=== PATIENT | female | born 1970 | race African-American/Black ===

== ENCOUNTER 2019-08-31 15:49 | Inpatient (IN) | payer MEDICAID ==
[~2019-08-31] VITALS: Ht 170.2 cm; Wt 65.8 kg
[2019-08-31] MEDS ORDERED: SODIUM CHLORIDE 0.9% 1,000 ML IV ONE (16:07)
[2019-08-31] MEDS ORDERED: KETOROLAC 30MG/ML VIAL IV STA (16:07)
[2019-08-31 16:36] LABS: HEMATOCRIT. 32.1 % (36.0-48.0); HEMOGLOBIN. 10.7 g/dL (12.0-16.0); MEAN CORPUSCULAR HEMOGLOBIN 32.4 pg (28.0-32.0); MEAN CORPUSCULAR VOLUME 97.4 fL (81.0-99.0); MEAN PLATELET VOLUME 7.6 fl (7.4-10.4); PLATELET 431 x1000/uL (130-400); RED BLOOD CELL COUNT 3.29 mill/uL (4.2-5.4); RED CELL DISTRIBUTION WIDTH 17.7 % (11.6-14.6)
[2019-08-31 16:44] LABS: CHLORIDE 98 mEq/L (98-107)
[2019-08-31 16:46] LABS: INR 1.5; PROTHROMBIN TIME 16.1 sec (9.6-11.0)
[2019-08-31 18:07] LABS: CLARITY URINE CLEAR (CLEAR); COLOR URINE DARK YELLOW (YELLOW); KETONES URINE TRACE (NEGATIVE); LEUKOCYTE ESTERASE URINE TRACE (NEGATIVE); NITRITE URINE NEGATIVE (NEGATIVE); OCCULT BLOOD URINE NEGATIVE (NEGATIVE); PROTEIN URINE 3+ (NEGATIVE); SPECIFIC GRAVITY URINE 1.022 (1.005-1.030)
[2019-08-31] MEDS ORDERED: LABETALOL 5MG/ML SYR 20 MG/4 ML SYRINGE IV ONE (18:30)
[2019-08-31] MEDS ORDERED: ONDANSETRON HCL 4MG/2ML INJ IV STA (20:05)
[2019-08-31] MEDS ORDERED: MORPHINE SULFATE 4 MG/ML CPJ (NOT FOR IM USE) IV STA (20:05)
[2019-08-31] MEDS ORDERED: HYDRALAZINE 20MG/ML VIAL IV ONE (20:15)
[2019-08-31] MEDS ORDERED: AMLODIPINE 10MG TABLET PO ONE (20:15)
[2019-08-31 20:23] LABS: PLATELET ESTIMATE INCREASED
[2019-08-31 22:00] VITALS: BP 143/94
[2019-08-31] MEDS ORDERED: MAGNESIUM/ALUMINUM HYDROXIDE/SIMETHICONE 30ML UDC PO PRN (22:00)
[2019-08-31] MEDS ORDERED: ONDANSETRON HCL 4MG/2ML INJ IV PRN (22:00)
[2019-08-31] MEDS ORDERED: GUAIFENESIN 200MG/10ML SUGAR FREE UDC PO PRN (22:00)
[2019-08-31] MEDS ORDERED: DOCUSATE SODIUM 100MG CAPSULE PO PRN (22:00)
[2019-08-31] MEDS ORDERED: IPRATROPIUM/ALBUTEROL 0.5-3(2.5)MG/3ML NEB ORI PRN (22:00)
[2019-08-31] MEDS ORDERED: ALBUMIN HUMAN 25GM/100ML (25%) IV SCH (23:00)
[2019-09-01] VITALS (8 sets, daily range): BP systolic 129–165; BP diastolic 89–110
[2019-09-01] MEDS: FUROSEMIDE 40MG/4ML VIAL IV SCH ×2 (00:32→09:00)
[2019-09-01] MEDS: SODIUM CHLORIDE 0.9% INJ 3ML FLUSH IVF SCH ×4 (00:32→22:07)
[2019-09-01] MEDS: CEFTRIAXONE 1 G PREMIX 50 ML IV SCH ×3 (00:33→22:07)
[2019-09-01] MEDS: HYDROCODONE/ACETAMINOPHEN 5/325MG TABLET PO PRN (00:34)
[2019-09-01 00:36] LABS: CREATINE KINASE MB FRACTION 1.9 ng/mL (0.5-3.6)
[2019-09-01 00:51] LABS: HEPATITIS B SURFACE ANTIGEN NEGATIVE
[2019-09-01 01:21] LABS: HEPATITIS A AB IGM NEGATIVE (NEGATIVE)
[2019-09-01 06:11] LABS: BASOPHILS % 0.7 % (0.0-2.0); HEMATOCRIT. 30.2 % (36.0-48.0); LYMPHOCYTES % 21.1 % (20.0-50.0); MEAN CORPUSCULAR HEMOGLOBIN 32.1 pg (28.0-32.0); MEAN CORPUSCULAR VOLUME 96.7 fL (81.0-99.0); MEAN PLATELET VOLUME 7.9 fl (7.4-10.4); MONOCYTES % 14.2 % (2.0-8.0); PLATELET 430 x1000/uL (130-400); RED BLOOD CELL COUNT 3.12 mill/uL (4.2-5.4)
[2019-09-01 06:20] LABS: CHLORIDE 96 mEq/L (98-107)
[2019-09-01 06:31] LABS: LDL CHOLESTEROL 83 mg/dL (5-100)
[2019-09-01 06:32] LABS: CREATINE KINASE 84 IU/L (26-192)
[2019-09-01 06:33] LABS: CREATINE KINASE MB FRACTION 1.6 ng/mL (0.5-3.6); HDL CHOLESTEROL 34 mg/dL (40-59)
[2019-09-01 09:48] LABS: *AMPHETAMINES SCREEN URINE PRESUMTIVE POSITIVE (NEGATIVE); *BARBITURATES SCREEN URINE NEGATIVE (NEGATIVE); *BENZODIAZEPINES SCREEN URINE NEGATIVE (NEGATIVE); *COCAINE SCREEN URINE NEGATIVE (NEGATIVE); CANNABINOID URINE SCREEN PRESUMTIVE POSITIVE (NEGATIVE); METHADONE URINE SCREEN NEGATIVE (NEGATIVE); OPIATES URINE SCREEN NEGATIVE (NEGATIVE)
[2019-09-01 09:49] LABS: PHENCYCLIDINE URINE SCREEN NEGATIVE (NEGATIVE)
[2019-09-01] MEDS: PANTOPRAZOLE SODIUM 40 MG/VIAL IV SCH (10:57)
[2019-09-01 12:39] LABS: BG BASE EXCESS -1.5 mmol/L (-2.0-2.0); BG CARBOXYHEMOGLOBIN 0.7 % (0.5-1.5); BG DEOXYHEMOGLOBIN 19.6 % (0.0-5.0); BG FRACTION INSPIRED OXYGEN 36; BG METHEMOGLOBIN 0.2 % (0.0-1.5); BG OXYGEN SATURATION 80.2 % (92.0-98.5); BG OXYHEMOGLOBIN 79.5 % (94.0-97.0); BG PCO2 43.8 mmHg (35.0-45.0); BG PH 7.357 (7.350-7.450); BG SAMPLE SITE RIGHT RADIAL; BG TOTAL HEMOGLOBIN 11.3 g/dL (12.0-18.0); BG VENT MODE NASAL CANNULA
[2019-09-01] MEDS ORDERED: BISACODYL 10MG SUPP PR PRN (13:45)
[2019-09-01] MEDS ORDERED: BISACODYL 5MG TABLET PO PRN (13:45)
[2019-09-01] MEDS ORDERED: PHYTONADIONE 10 MG/10 ML ORALSYR PO SCH (15:00)
[2019-09-01] MEDS ORDERED: MAGNESIUM CITRATE 300ML SOLUTION PO SCH (15:00)
[2019-09-01] MEDS: CARVEDILOL 6.25 MG TABLET PO SCH ×2 (15:15→22:07)
[2019-09-01] MEDS: CLONIDINE 0.1MG TABLET PO PRN (17:00)
[2019-09-01] MEDS ORDERED: SODIUM CHLORIDE 0.9% 1,000 ML IV SCH (17:15)
[2019-09-02 02:30] VITALS: BP 149/93
[2019-09-02 06:01] VITALS: BP 140/69
[2019-09-02 06:35] LABS: BASOPHILS % 0.7 % (0.0-2.0); EOSINOPHILS % 1.9 % (0.0-5.0); HEMATOCRIT. 32.2 % (36.0-48.0); HEMOGLOBIN. 10.9 g/dL (12.0-16.0); LYMPHOCYTES % 13.4 % (20.0-50.0); MEAN CORPUSCULAR HEMOGLOBIN 33.5 pg (28.0-32.0); MEAN CORPUSCULAR VOLUME 98.4 fL (81.0-99.0); MONOCYTES % 7.9 % (2.0-8.0); NEUTROPHILS % 76.1 % (40.0-76.0); PLATELET 447 x1000/uL (130-400); RED BLOOD CELL COUNT 3.27 mill/uL (4.2-5.4); RED CELL DISTRIBUTION WIDTH 17.6 % (11.6-14.6)
[2019-09-02 06:48] LABS: CHLORIDE 95 mEq/L (98-107)
[2019-09-02 06:54] LABS: PHOSPHORUS 3.7 mg/dL (2.5-4.9)
[2019-09-02 08:00] VITALS: BP 136/86
[2019-09-02] MEDS: CARVEDILOL 6.25 MG TABLET PO SCH ×2 (09:04→20:38)
[2019-09-02] MEDS: SODIUM CHLORIDE 0.9% INJ 3ML FLUSH IVF SCH ×3 (09:05→21:01)
[2019-09-02] MEDS: PANTOPRAZOLE SODIUM 40 MG/VIAL IV SCH (09:05)
[2019-09-02] MEDS ORDERED: LOSARTAN POTASSIUM 25 MG TABLET PO SCH (09:45)
[2019-09-02 12:00] VITALS: BP 110/76
[2019-09-02] MEDS: FUROSEMIDE 40MG/4ML VIAL IVP SCH (14:09)
[2019-09-02 15:33] LABS: TOTAL IRON BINDING CAPACITY 325 ug/dL (250-450)
[2019-09-02 16:00] VITALS: BP 129/78
[2019-09-02] MEDS: HYDROCODONE/ACETAMINOPHEN 5/325MG TABLET PO PRN (18:16)
[2019-09-02 19:37] VITALS: BP 110/71
[2019-09-02] MEDS: HYDROCODONE/ACETAMINOPHEN 10/325MG TABLET PO PRN (20:38)
[2019-09-02] MEDS ORDERED: LACTULOSE 20G/30ML UDC PO SCH (21:30)
[2019-09-02] MEDS: CEFTRIAXONE 1 G PREMIX 50 ML IV SCH (22:31)
[2019-09-03 00:42] VITALS: BP 130/87
[2019-09-03 04:00] VITALS: BP 134/88
[2019-09-03] MEDS: SODIUM CHLORIDE 0.9% INJ 3ML FLUSH IVF SCH ×3 (05:14→21:12)
[2019-09-03 07:14] LABS: HEMATOCRIT. 32.2 % (36.0-48.0); HEMOGLOBIN. 10.4 g/dL (12.0-16.0); MEAN CORPUSCULAR HEMOGLOBIN 31.4 pg (28.0-32.0); MEAN CORPUSCULAR VOLUME 97.4 fL (81.0-99.0); MEAN PLATELET VOLUME 8.2 fl (7.4-10.4); PLATELET 460 x1000/uL (130-400); RED CELL DISTRIBUTION WIDTH 17.1 % (11.6-14.6)
[2019-09-03 07:17] LABS: CHLORIDE 96 mEq/L (98-107)
[2019-09-03 07:22] LABS: PHOSPHORUS 3.9 mg/dL (2.5-4.9)
[2019-09-03 08:00] VITALS: BP 144/95
[2019-09-03] MEDS ORDERED: BISACODYL 5MG TABLET PO SCH (08:15)
[2019-09-03] MEDS: DOCUSATE SODIUM 100MG CAPSULE PO SCH ×2 (09:03→17:19)
[2019-09-03] MEDS: FAMOTIDINE 20MG/2ML VIAL IV SCH (09:03)
[2019-09-03] MEDS: CARVEDILOL 6.25 MG TABLET PO SCH ×2 (09:03→20:48)
[2019-09-03] MEDS: FUROSEMIDE 40MG/4ML VIAL IVP SCH ×2 (09:03→19:01)
[2019-09-03 09:06] LABS: IMMUNOGLOBULIN A 635 mg/dL (87-352); IMMUNOGLOBULIN G 1220 mg/dL (586-1602); IMMUNOGLOBULIN M 43 mg/dL (26-217)
[2019-09-03 09:06] LABS: HIV SCREEN 4G Non Reactive (Non Reactive)
[2019-09-03] MEDS ORDERED: AMLODIPINE 5MG TABLET PO SCH (09:45)
[2019-09-03] MEDS: AZITHROMYCIN 500 MG TABLET PO SCH (10:24)
[2019-09-03 12:00] VITALS: BP 142/97
[2019-09-03 13:06] LABS: A/G RATIO 0.9 (0.7-1.7); ALPHA-1-GLOBULIN 0.5 g/dL (0.0-0.4); ALPHA-2-GLOBULIN 0.7 g/dL (0.4-1.0); ANTI-DNA DOUBLE STRANDED QUANT < 1 IU/mL (0-9); BETA GLOBULIN 1.3 g/dL (0.7-1.3); GAMMA GLOBULINS 1.1 g/dL (0.4-1.8); GLOBULIN TOTAL 3.5 g/dL (2.2-3.9); M-SPIKE Not Observed g/dL (Not Observed); TOTAL PROTEIN SERUM 6.5 g/dL (6.0-8.5)
[2019-09-03 13:06] LABS: ANTI-NUCLEAR ANTIBODIES DIRECT Positive (Negative)
[2019-09-03 14:51] LABS: PLATELET ESTIMATE INCREASED
[2019-09-03 16:00] VITALS: BP 118/80
[2019-09-03 20:00] VITALS: BP 124/73
[2019-09-03] MEDS: HYDROCODONE/ACETAMINOPHEN 10/325MG TABLET PO PRN (21:12)
[2019-09-03] MEDS: CEFTRIAXONE 1 G PREMIX 50 ML IV SCH (22:48)
[2019-09-04] VITALS: BP 151/101
[2019-09-04] MEDS: CLONIDINE 0.1MG TABLET PO PRN (00:11)
[2019-09-04 04:00] VITALS: BP 136/84
[2019-09-04] MEDS: SODIUM CHLORIDE 0.9% INJ 3ML FLUSH IVF SCH ×3 (05:01→22:31)
[2019-09-04] MEDS: FUROSEMIDE 40MG/4ML VIAL IVP SCH ×2 (06:15→17:37)
[2019-09-04 06:57] LABS: BASOPHILS % 1.3 % (0.0-2.0); EOSINOPHILS % 2.5 % (0.0-5.0); HEMATOCRIT. 32.8 % (36.0-48.0); HEMOGLOBIN. 10.7 g/dL (12.0-16.0); LYMPHOCYTES % 23.9 % (20.0-50.0); MEAN CORPUSCULAR VOLUME 98.2 fL (81.0-99.0); MEAN PLATELET VOLUME 8.1 fl (7.4-10.4); NEUTROPHILS % 60.3 % (40.0-76.0); PLATELET 500 x1000/uL (130-400); RED BLOOD CELL COUNT 3.34 mill/uL (4.2-5.4); RED CELL DISTRIBUTION WIDTH 17.2 % (11.6-14.6)
[2019-09-04 07:06] LABS: CHLORIDE 93 mEq/L (98-107)
[2019-09-04 08:00] VITALS: BP 138/90
[2019-09-04] MEDS: AZITHROMYCIN 500 MG TABLET PO SCH (08:55)
[2019-09-04] MEDS: DOCUSATE SODIUM 100MG CAPSULE PO SCH ×2 (08:55→17:37)
[2019-09-04] MEDS: CARVEDILOL 6.25 MG TABLET PO SCH ×2 (08:56→22:31)
[2019-09-04] MEDS: FAMOTIDINE 20MG/2ML VIAL IV SCH (08:56)
[2019-09-04 09:06] LABS: GLOMERULAR BASEMENT MEMB AB 3 units (0-20)
[2019-09-04 11:45] VITALS: BP 138/89
[2019-09-04 13:06] LABS: ATYPICAL P-ANCA <1:20 titer (Neg:<1:20); CYTOPLASMIC C-ANCA <1:20 titer (Neg:<1:20); PERINUCLEAR P-ANCA <1:20 titer (Neg:<1:20)
[2019-09-04 14:08] LABS: ANTI-CARDIOLIPIN AB IGA < 9 APL U/mL (0-11); ANTI-CARDIOLIPIN AB IGG < 9 GPL U/mL (0-14); ANTI-CARDIOLIPIN AB IGM < 9 MPL U/mL (0-12); ANTI-MYELOPEROXIDASE AB < 9.0 U/mL (0.0-9.0); ANTI-PROTEINASE 3 ABS < 3.5 U/mL (0.0-3.5)
[2019-09-04 16:00] VITALS: BP 131/59
[2019-09-04] MEDS: AMLODIPINE 10MG TABLET PO SCH (17:37)
[2019-09-04] MEDS: LACTULOSE 20G/30ML UDC PO SCH ×3 (17:40→22:31)
[2019-09-04] MEDS: CEFTRIAXONE 1 G PREMIX 50 ML IV SCH (22:31)
[2019-09-05] MEDS: LACTULOSE 20G/30ML UDC PO SCH ×2 (06:00→06:46)
[2019-09-05 06:09] LABS: QFT MITOGEN VALUE 2.03 IU/mL (.); QFT TB GOLD PLUS Negative (Negative); QFT TB1 AG VALUE 0.08 IU/mL (.)
[2019-09-05 06:40] LABS: BASOPHILS % 0.9 % (0.0-2.0); EOSINOPHILS % 1.5 % (0.0-5.0); HEMATOCRIT. 29.5 % (36.0-48.0); HEMOGLOBIN. 9.7 g/dL (12.0-16.0); LYMPHOCYTES % 18.6 % (20.0-50.0); MEAN CORPUSCULAR HEMOGLOBIN 31.6 pg (28.0-32.0); MEAN CORPUSCULAR VOLUME 96.2 fL (81.0-99.0); MEAN PLATELET VOLUME 7.9 fl (7.4-10.4); MONOCYTES % 14.4 % (2.0-8.0); NEUTROPHILS % 64.6 % (40.0-76.0); PLATELET 504 x1000/uL (130-400); RED BLOOD CELL COUNT 3.06 mill/uL (4.2-5.4); RED CELL DISTRIBUTION WIDTH 16.3 % (11.6-14.6)
[2019-09-05] MEDS: FUROSEMIDE 40MG/4ML VIAL IVP SCH ×2 (06:46→17:04)
[2019-09-05] MEDS: SODIUM CHLORIDE 0.9% INJ 3ML FLUSH IVF SCH ×3 (06:46→22:02)
[2019-09-05 06:57] LABS: PHOSPHORUS 2.8 mg/dL (2.5-4.9)
[2019-09-05 08:00] VITALS: BP 148/92
[2019-09-05] MEDS: FAMOTIDINE 20MG/2ML VIAL IV SCH (09:12)
[2019-09-05] MEDS: AZITHROMYCIN 500 MG TABLET PO SCH (09:12)
[2019-09-05] MEDS: DOCUSATE SODIUM 100MG CAPSULE PO SCH (09:12)
[2019-09-05] MEDS: CARVEDILOL 6.25 MG TABLET PO SCH ×2 (09:13→21:54)
[2019-09-05] MEDS: AMLODIPINE 10MG TABLET PO SCH (09:13)
[2019-09-05] MEDS ORDERED: POTASSIUM CHLORIDE 20MEQ TABLET SR PO NR ×3 (09:30→16:46)
[2019-09-05] MEDS ORDERED: LACTULOSE 20G/30ML UDC PO SCH (11:45)
[2019-09-05] MEDS: SPIRONOLACTONE 25MG TABLET PO SCH (11:55)
[2019-09-05 11:56] VITALS: BP 146/96
[2019-09-05 12:00] VITALS: BP 140/90
[2019-09-05 16:00] VITALS: BP 142/80
[2019-09-05] MEDS ORDERED: SIMETHICONE 80MG TABLET CHEW PO PRN (17:15)
[2019-09-05] MEDS ORDERED: SIMETHICONE 40 MG/0.6 ML 30ML PO SCH ×2 (18:20)
[2019-09-05 20:00] VITALS: BP 145/82
[2019-09-05] MEDS: DIPHENHYDRAMINE 50MG CAPSULE PO PRN (23:14)
[2019-09-06 00:30] VITALS: BP 148/90
[2019-09-06 04:00] VITALS: BP 149/78
[2019-09-06] MEDS: SODIUM CHLORIDE 0.9% INJ 3ML FLUSH IVF SCH ×3 (06:58→22:13)
[2019-09-06] MEDS: FUROSEMIDE 40MG/4ML VIAL IVP SCH ×2 (07:15→16:01)
[2019-09-06 07:19] LABS: EOSINOPHILS % 0.9 % (0.0-5.0); HEMATOCRIT. 30.5 % (36.0-48.0); HEMOGLOBIN. 10.2 g/dL (12.0-16.0); LYMPHOCYTES % 13.3 % (20.0-50.0); MEAN CORPUSCULAR HEMOGLOBIN 31.8 pg (28.0-32.0); MEAN CORPUSCULAR VOLUME 95.6 fL (81.0-99.0); MEAN PLATELET VOLUME 7.9 fl (7.4-10.4); NEUTROPHILS % 71.8 % (40.0-76.0); PLATELET 501 x1000/uL (130-400); RED BLOOD CELL COUNT 3.19 mill/uL (4.2-5.4); RED CELL DISTRIBUTION WIDTH 16.3 % (11.6-14.6)
[2019-09-06 07:42] LABS: CHLORIDE 99 mEq/L (98-107)
[2019-09-06 08:00] VITALS: BP 149/89
[2019-09-06] MEDS: AZITHROMYCIN 500 MG TABLET PO SCH (09:11)
[2019-09-06] MEDS: AMLODIPINE 10MG TABLET PO SCH (09:11)
[2019-09-06] MEDS: FAMOTIDINE 20MG/2ML VIAL IV SCH (09:11)
[2019-09-06] MEDS: SPIRONOLACTONE 25MG TABLET PO SCH (09:12)
[2019-09-06] MEDS: CARVEDILOL 6.25 MG TABLET PO SCH ×2 (09:12→22:13)
[2019-09-06] MEDS: ACETAMINOPHEN 325MG TABLET PO PRN (11:02)
[2019-09-06 11:32] LABS: CREATINE KINASE 52 IU/L (26-192)
[2019-09-06 12:10] VITALS: BP 136/79
[2019-09-06] MEDS ORDERED: POTASSIUM PHOS,M-BASIC-D-BASIC 20 MMOL in DEXT 5% WATER 243.3333 ML IV SCH (14:00)
[2019-09-06 16:00] VITALS: BP 124/74
[2019-09-06] MEDS: HYDROCODONE/ACETAMINOPHEN 10/325MG TABLET PO PRN (16:13)
[2019-09-06 20:00] VITALS: BP 147/92
[2019-09-06] MEDS: CEFTRIAXONE 1 G PREMIX 50 ML IV SCH (22:13)
[2019-09-07] VITALS: BP 145/90
[2019-09-07 04:00] VITALS: BP 155/90
[2019-09-07 06:30] LABS: HEMOGLOBIN. 10.7 g/dL (12.0-16.0); MEAN CORPUSCULAR HEMOGLOBIN 31.2 pg (28.0-32.0); MEAN CORPUSCULAR VOLUME 96.1 fL (81.0-99.0); PLATELET 488 x1000/uL (130-400); RED BLOOD CELL COUNT 3.44 mill/uL (4.2-5.4); RED CELL DISTRIBUTION WIDTH 16.7 % (11.6-14.6)
[2019-09-07 06:42] LABS: PHOSPHORUS 3.2 mg/dL (2.5-4.9)
[2019-09-07] MEDS: SODIUM CHLORIDE 0.9% INJ 3ML FLUSH IVF SCH ×3 (06:42→20:33)
[2019-09-07] MEDS: FUROSEMIDE 40MG/4ML VIAL IVP SCH (06:42)
[2019-09-07 06:45] LABS: D-DIMER 0.99 mg/L FEU (<0.50); INR 1.4; PARTIAL THROMBOPLASTIN TIME 28.5 sec (23.4-31.0); PROTHROMBIN TIME 15.2 sec (9.6-11.0)
[2019-09-07 08:06] VITALS: BP 156/99
[2019-09-07 08:11] LABS: *CREATININE RANDOM URINE 12.3 mg/dL (Not Estab.); MICROALBUMIN RANDOM URINE 26.7 ug/mL (Not Estab.)
[2019-09-07] MEDS: AZITHROMYCIN 500 MG TABLET PO SCH (09:05)
[2019-09-07] MEDS: AMLODIPINE 10MG TABLET PO SCH (09:06)
[2019-09-07] MEDS: SPIRONOLACTONE 25MG TABLET PO SCH (09:06)
[2019-09-07] MEDS: CARVEDILOL 6.25 MG TABLET PO SCH (09:06)
[2019-09-07] MEDS: FAMOTIDINE 20MG/2ML VIAL IV SCH (09:15)
[2019-09-07 12:00] VITALS: BP 145/88
[2019-09-07] MEDS: ALBUTEROL 6.7GM HFA INHALER ORI SCH ×2 (12:00→18:08)
[2019-09-07 13:19] LABS: NUCLEATED RED BLOOD CELLS 1 /100 WBC; PLATELET ESTIMATE INCREASED
[2019-09-07] MEDS ORDERED: MAGNESIUM 2 G PREMIX 50 ML IV SCH (14:00)
[2019-09-07] MEDS: DIPHENHYDRAMINE 50MG CAPSULE PO PRN ×2 (14:06→20:33)
[2019-09-07 16:00] VITALS: BP 138/89
[2019-09-07] MEDS: LACTULOSE 20G/30ML UDC PO SCH (16:59)
[2019-09-07 20:00] VITALS: BP 135/87
[2019-09-07] MEDS: CARVEDILOL 12.5MG TABLET PO SCH (20:33)
[2019-09-07] MEDS: CEFTRIAXONE 1 G PREMIX 50 ML IV SCH (20:33)
[2019-09-08] VITALS: BP 128/85
[2019-09-08 04:00] VITALS: BP 125/77
[2019-09-08] MEDS: SODIUM CHLORIDE 0.9% INJ 3ML FLUSH IVF SCH ×2 (05:06→14:00)
[2019-09-08] MEDS: ALBUTEROL 6.7GM HFA INHALER ORI SCH ×2 (05:06)
[2019-09-08 06:26] LABS: HEMATOCRIT. 33.5 % (36.0-48.0); HEMOGLOBIN. 11.1 g/dL (12.0-16.0); MEAN CORPUSCULAR HEMOGLOBIN 31.6 pg (28.0-32.0); MEAN CORPUSCULAR VOLUME 95.5 fL (81.0-99.0); MEAN PLATELET VOLUME 7.9 fl (7.4-10.4); PLATELET 487 x1000/uL (130-400); RED BLOOD CELL COUNT 3.51 mill/uL (4.2-5.4); RED CELL DISTRIBUTION WIDTH 16.2 % (11.6-14.6)
[2019-09-08 06:28] LABS: CHLORIDE 98 mEq/L (98-107)
[2019-09-08 08:00] VITALS: BP 146/93
[2019-09-08] MEDS ORDERED: SODIUM BICARBONATE 4% (2.4MEQ) 5ML VIAL IV ONE (08:29)
[2019-09-08] MEDS ORDERED: FUROSEMIDE 40MG TABLET PO SCH (09:00)
[2019-09-08] MEDS: LACTULOSE 20G/30ML UDC PO SCH (09:56)
[2019-09-08] MEDS: FAMOTIDINE 20MG/2ML VIAL IV SCH (09:56)
[2019-09-08] MEDS: AMLODIPINE 10MG TABLET PO SCH (10:00)
[2019-09-08] MEDS: CARVEDILOL 12.5MG TABLET PO SCH (10:00)
[2019-09-08] MEDS: ACETAMINOPHEN 325MG TABLET PO PRN (10:06)
[2019-09-08] MEDS ORDERED: LACT10SO7 MT (10:53)
[2019-09-08] MEDS ORDERED: AMLO10TA80 PO (10:53)
[2019-09-08] MEDS ORDERED: COR12 PO (10:53)
[2019-09-08] MEDS ORDERED: FURO-151 MT (10:53)
[2019-09-08] MEDS ORDERED: SPIR25TA PO (10:53)
[2019-09-08] MEDS ORDERED: POTASSIUM CHLORIDE 20MEQ TABLET SR PO NR (11:00)
[2019-09-08] MEDS: SPIRONOLACTONE 25MG TABLET PO SCH (11:23)
[2019-09-08 12:00] VITALS: BP 119/71
[2019-09-08 13:21] LABS: PLATELET ESTIMATE INCREASED
[2019-09-08] MEDS ORDERED: POTASSIUM CHLORIDE 20MEQ TABLET SR PO SCH (15:00)
[2019-09-08 16:00] VITALS: BP 111/75
[2019-09-08 16:18] VITALS: BP 111/75
== END 2019-09-08 18:25 | disposition home or self-care (01) | DRG 280 ==
LOC: ER 15:49 → UNDOADMIN 20:08 → 6WST 20:08 → MICUSO 20:08 → EDBEDREQSVC 20:12 → EDBEDREQTM 20:12 → EDBEDREQ 20:12 → ENRESERV 21:34
PROVIDERS: ADMIT Family Medicine; ATTEND Family Medicine
PROC: 0W993ZZ Drainage of Right Pleural Cavity, Percutaneous Approach (ICD-10-PCS; principal; 2019-09-08)
DX: K70.31 Alcoholic cirrhosis of liver with ascites (principal); J96.00 Acute respiratory failure, unspecified whether with hypoxia or hypercapnia; I50.23 Acute on chronic systolic (congestive) heart failure; E43 Unspecified severe protein-calorie malnutrition; J18.9 Pneumonia, unspecified organism; J91.8 Pleural effusion in other conditions classified elsewhere; N17.9 Acute kidney failure, unspecified; D68.9 Coagulation defect, unspecified; E11.22 Type 2 diabetes mellitus with diabetic chronic kidney disease; I13.0 Hypertensive heart and chronic kidney disease with heart failure and stage 1 through stage 4 chronic kidney disease, or unspecified chronic kidney disease; N18.9 Chronic kidney disease, unspecified; D64.9 Anemia, unspecified; F10.20 Alcohol dependence, uncomplicated; K59.00 Constipation, unspecified; K57.90 Diverticulosis of intestine, part unspecified, without perforation or abscess without bleeding; E87.1 Hypo-osmolality and hyponatremia; D25.9 Leiomyoma of uterus, unspecified; I42.9 Cardiomyopathy, unspecified; F15.10 Other stimulant abuse, uncomplicated; E83.42 Hypomagnesemia; F12.90 Cannabis use, unspecified, uncomplicated; D72.810 Lymphocytopenia; E87.6 Hypokalemia; D47.3 Essential (hemorrhagic) thrombocythemia; F17.210 Nicotine dependence, cigarettes, uncomplicated; I27.29 Other secondary pulmonary hypertension; K72.90 Hepatic failure, unspecified without coma; Z98.51 Tubal ligation status; Z90.49 Acquired absence of other specified parts of digestive tract; Z90.721 Acquired absence of ovaries, unilateral; Z68.22 Body mass index [BMI] 22.0-22.9, adult; Z03.818 Encounter for observation for suspected exposure to other biological agents ruled out
CPT/HCPCS: 32555; 36415; 36600; 71045; 71250; 74176; 74181; 76700; 76770; 76801; 80048; 80053; 80061; 80076; 80305; 81003; 82043; 82105; 82140; 82248; 82375; 82390; 82550; 82553; 82570; 82728; 82784; 82805; 83036; 83520; 83540; 83550; 83735; 84100; 84132; 84145; 84155; 84165; 84300; 84443; 84484; 84702; 85025; 85379; 85384; 85651; 86038; 86140; 86147; 86160; 86225; 86256; 86334; 86480; 86705; 86709; 86803; 86850; 86900; 87340; 87389; 93306; 96374; 97110; 97162; 97530; 99291; C9113; J0360; J0696; J1885; J1940; J2270; J2405; J3430; J3475; J3490; J7030; J7060; P9047; Q0163; U0003-CS

== ENCOUNTER 2019-10-31 15:54 | Inpatient (IN) | payer MEDICAID ==
[~2019-10-31] VITALS: Ht 160 cm; Wt 56.3 kg
[~2019-10-31 15:54] MED LIST: AMLO10TA80 PO; COR12 PO; FURO-151 MT; LACT10SO7 MT; SPIR25TA PO
[2019-10-31] MEDS ORDERED: FUROSEMIDE 40MG/4ML VIAL IV ONE (16:45)
[2019-10-31] MEDS ORDERED: NITROGLYCERIN OINT 1GM/INCH UDPKT TD ONE (16:45)
[2019-10-31 17:53] LABS: BASOPHILS % 0.6 % (0.0-2.0); EOSINOPHILS % 1.7 % (0.0-5.0); HEMATOCRIT. 35.6 % (36.0-48.0); HEMOGLOBIN. 11.8 g/dL (12.0-16.0); LYMPHOCYTES % 16.7 % (20.0-50.0); MEAN CORPUSCULAR HEMOGLOBIN 29.1 pg (28.0-32.0); MEAN CORPUSCULAR VOLUME 87.8 fL (81.0-99.0); MEAN PLATELET VOLUME 8.3 fl (7.4-10.4); MONOCYTES % 8.3 % (2.0-8.0); NEUTROPHILS % 72.7 % (40.0-76.0); PLATELET 330 x1000/uL (130-400); RED BLOOD CELL COUNT 4.05 mill/uL (4.2-5.4); RED CELL DISTRIBUTION WIDTH 16.7 % (11.6-14.6)
[2019-10-31 17:59] LABS: CHLORIDE 109 mEq/L (98-107)
[2019-10-31 18:03] LABS: INR 1.1; PROTHROMBIN TIME 11.8 sec (9.6-11.0)
[2019-10-31] MEDS: HYDRALAZINE 20MG/ML VIAL IV NR ×2 (19:02→20:56)
[2019-10-31] MEDS ORDERED: ACETAMINOPHEN 325MG TABLET PO ONE (21:15)
[2019-10-31] MEDS ORDERED: HYDRALAZINE 20MG/ML VIAL IV ONE (21:15)
[2019-10-31] MEDS ORDERED: CLONIDINE 0.2MG TABLET PO ONE (21:15)
[2019-10-31] MEDS ORDERED: ACETAMINOPHEN 650MG/20.3ML UDC GT PRN ×2 (21:45)
[2019-10-31] MEDS ORDERED: ACETAMINOPHEN 325MG TABLET PO PRN ×2 (21:45)
[2019-10-31] MEDS ORDERED: ONDANSETRON HCL 4MG/2ML INJ IV PRN (21:45)
[2019-10-31] MEDS ORDERED: NITROGLYCERIN 0.2MG/HR PATCH TOP SCH (23:00)
[2019-11-01] VITALS (12 sets, daily range): BP systolic 115–146; BP diastolic 49–99
[2019-11-01] MEDS: AMLODIPINE 10MG TABLET PO SCH ×2 (01:13→08:50)
[2019-11-01] MEDS: HYDROCODONE/ACETAMINOPHEN 5/325MG TABLET PO PRN ×3 (02:22→18:58)
[2019-11-01 03:20] LABS: CLARITY URINE CLEAR (CLEAR); COLOR URINE YELLOW (YELLOW); KETONES URINE NEGATIVE (NEGATIVE); LEUKOCYTE ESTERASE URINE NEGATIVE (NEGATIVE); NITRITE URINE NEGATIVE (NEGATIVE); OCCULT BLOOD URINE NEGATIVE (NEGATIVE); PH URINE 7.5 (4.5-8.0); PROTEIN URINE NEGATIVE (NEGATIVE); SPECIFIC GRAVITY URINE 1.012 (1.005-1.030)
[2019-11-01 04:12] LABS: *BENZODIAZEPINES SCREEN URINE NEGATIVE (NEGATIVE); *COCAINE SCREEN URINE PRESUMTIVE POSITIVE (NEGATIVE); METHADONE URINE SCREEN NEGATIVE (NEGATIVE); OPIATES URINE SCREEN NEGATIVE (NEGATIVE)
[2019-11-01 04:13] LABS: *AMPHETAMINES SCREEN URINE NEGATIVE (NEGATIVE); *BARBITURATES SCREEN URINE NEGATIVE (NEGATIVE); CANNABINOID URINE SCREEN PRESUMTIVE POSITIVE (NEGATIVE); PHENCYCLIDINE URINE SCREEN NEGATIVE (NEGATIVE)
[2019-11-01 07:04] LABS: BASOPHILS % 0.5 % (0.0-2.0); EOSINOPHILS % 1.7 % (0.0-5.0); HEMATOCRIT. 31.8 % (36.0-48.0); HEMOGLOBIN. 10.7 g/dL (12.0-16.0); LYMPHOCYTES % 19.8 % (20.0-50.0); MEAN CORPUSCULAR HEMOGLOBIN 28.9 pg (28.0-32.0); MEAN CORPUSCULAR VOLUME 85.9 fL (81.0-99.0); MEAN PLATELET VOLUME 8.5 fl (7.4-10.4); PLATELET 317 x1000/uL (130-400); RED BLOOD CELL COUNT 3.71 mill/uL (4.2-5.4); RED CELL DISTRIBUTION WIDTH 16.5 % (11.6-14.6)
[2019-11-01 07:07] LABS: CHLORIDE 106 mEq/L (98-107)
[2019-11-01 07:22] LABS: LDL CHOLESTEROL 135 mg/dL (5-100)
[2019-11-01 07:25] LABS: HDL CHOLESTEROL 46 mg/dL (40-59)
[2019-11-01] MEDS: NITROGLYCERIN 0.1MG/HR PATCH TOP SCH (08:49)
[2019-11-01] MEDS: FUROSEMIDE 40MG/4ML VIAL IV SCH (08:49)
[2019-11-01] MEDS: LACTULOSE 20G/30ML UDC PO SCH (08:50)
[2019-11-01] MEDS: CARVEDILOL 12.5MG TABLET PO SCH ×2 (08:50→21:14)
[2019-11-01] MEDS: SPIRONOLACTONE 25MG TABLET PO SCH (08:51)
[2019-11-01] MEDS: ENOXAPARIN 30MG/0.3ML SYR SUBCUT SCH (08:51)
[2019-11-01 14:20] LABS: T4 FREE 1.26 ng/dL (0.76-1.46)
[2019-11-01 16:14] LABS: CREATINE KINASE 38 IU/L (26-192)
[2019-11-01 16:15] LABS: CREATINE KINASE MB FRACTION < 1.0 ng/mL (0.5-3.6)
[2019-11-02] VITALS (9 sets, daily range): BP systolic 110–153; BP diastolic 49–101
[2019-11-02 00:39] LABS: CREATINE KINASE 35 IU/L (26-192)
[2019-11-02 00:40] LABS: CREATINE KINASE MB FRACTION < 1.0 ng/mL (0.5-3.6)
[2019-11-02 06:59] LABS: CREATINE KINASE 32 IU/L (26-192)
[2019-11-02 07:00] LABS: CREATINE KINASE MB FRACTION < 1.0 ng/mL (0.5-3.6)
[2019-11-02] MEDS: FUROSEMIDE 40MG/4ML VIAL IV SCH (08:02)
[2019-11-02] MEDS: LACTULOSE 20G/30ML UDC PO SCH (08:02)
[2019-11-02] MEDS: ENOXAPARIN 30MG/0.3ML SYR SUBCUT SCH (08:02)
[2019-11-02] MEDS: SPIRONOLACTONE 25MG TABLET PO SCH (08:04)
[2019-11-02] MEDS: AMLODIPINE 10MG TABLET PO SCH (08:04)
[2019-11-02] MEDS: CARVEDILOL 12.5MG TABLET PO SCH (08:04)
[2019-11-02] MEDS: HYDROCODONE/ACETAMINOPHEN 5/325MG TABLET PO PRN (08:05)
[2019-11-02] MEDS: NITROGLYCERIN 0.1MG/HR PATCH TOP SCH (08:17)
[2019-11-02] MEDS ORDERED: LACT10SO7 MT (10:40)
[2019-11-02] MEDS ORDERED: AMLO10TA80 PO (10:40)
[2019-11-02] MEDS ORDERED: COR12 PO (10:40)
[2019-11-02] MEDS ORDERED: SPIR25TA PO (10:40)
[2019-11-02] MEDS ORDERED: FURO-151 MT (10:40)
[2019-11-02 11:28] LABS: BASOPHILS % 0.9 % (0.0-2.0); EOSINOPHILS % 4.2 % (0.0-5.0); HEMATOCRIT. 32.5 % (36.0-48.0); HEMOGLOBIN. 10.7 g/dL (12.0-16.0); LYMPHOCYTES % 24.7 % (20.0-50.0); MEAN CORPUSCULAR HEMOGLOBIN 28.5 pg (28.0-32.0); MEAN CORPUSCULAR VOLUME 86.5 fL (81.0-99.0); MEAN PLATELET VOLUME 8.7 fl (7.4-10.4); MONOCYTES % 9.9 % (2.0-8.0); NEUTROPHILS % 60.3 % (40.0-76.0); PLATELET 320 x1000/uL (130-400); RED BLOOD CELL COUNT 3.75 mill/uL (4.2-5.4); RED CELL DISTRIBUTION WIDTH 16.5 % (11.6-14.6)
[2019-11-02 11:31] LABS: CHLORIDE 104 mEq/L (98-107)
[2019-11-03] MEDS ORDERED: NITROGLYCERIN 0.2MG/HR PATCH TOP SCH (09:00)
== END 2019-11-02 16:00 | disposition home or self-care (01) | DRG 194 ==
LOC: ER 16:08 → 5EST 18:34 → EDBEDREQ 18:48 → EDBEDREQSVC 18:48 → ENRESERV 20:44
PROVIDERS: ADMIT Family Medicine; ATTEND Family Medicine
DX: I11.0 Hypertensive heart disease with heart failure (principal); D64.9 Anemia, unspecified; J44.9 Chronic obstructive pulmonary disease, unspecified; K76.7 Hepatorenal syndrome; R18.8 Other ascites; Z87.891 Personal history of nicotine dependence; Z90.49 Acquired absence of other specified parts of digestive tract; I50.23 Acute on chronic systolic (congestive) heart failure; I27.20 Pulmonary hypertension, unspecified
CPT/HCPCS: 36415; 71045; 80053; 80061; 80305; 81003; 82550; 82553; 83036; 83880; 84439; 84443; 84484; 85025; 85379; 93005; 93306; 93970; 99291; J0360; J1650; J1940

== ENCOUNTER 2020-01-22 03:59 | Emergency (ER) | payer MEDICAID ==
[~2020-01-22] VITALS: Ht 170.2 cm; Wt 65.0 kg
[2020-01-22] MEDS ORDERED: NITROGLYCERIN 0.4MG TABLET SL SL PRN (04:30)
[2020-01-22] MEDS ORDERED: CLONIDINE 0.3MG TABLET PO ONE (04:30)
[2020-01-22] MEDS ORDERED: ASPIRIN 81MG TABLET PO ONE (04:30)
[2020-01-22 04:55] LABS: BASOPHILS % 0.6 % (0.0-2.0); EOSINOPHILS % 1.8 % (0.0-5.0); HEMATOCRIT. 36.9 % (36.0-48.0); HEMOGLOBIN. 12.1 g/dL (12.0-16.0); LYMPHOCYTES % 16.7 % (20.0-50.0); MEAN CORPUSCULAR HEMOGLOBIN 31.7 pg (28.0-32.0); MEAN CORPUSCULAR VOLUME 96.4 fL (81.0-99.0); MEAN PLATELET VOLUME 7.8 fl (7.4-10.4); MONOCYTES % 6.4 % (2.0-8.0); NEUTROPHILS % 74.5 % (40.0-76.0); PLATELET 356 x1000/uL (130-400); RED BLOOD CELL COUNT 3.83 mill/uL (4.2-5.4); RED CELL DISTRIBUTION WIDTH 19.5 % (11.6-14.6)
[2020-01-22 05:03] LABS: CHLORIDE 107 mEq/L (98-107)
[2020-01-22 05:07] LABS: ETHANOL BLOOD < 10 mg/dL
[2020-01-22] MEDS ORDERED: FUROSEMIDE 40MG TABLET PO ONE (05:45)
[2020-01-22 06:56] VITALS: BP 161/99
== END 2020-01-22 06:57 | disposition home or self-care (01) ==
LOC: ER 04:07
DX: I13.0 Hypertensive heart and chronic kidney disease with heart failure and stage 1 through stage 4 chronic kidney disease, or unspecified chronic kidney disease (principal); I50.9 Heart failure, unspecified; E11.22 Type 2 diabetes mellitus with diabetic chronic kidney disease; N18.9 Chronic kidney disease, unspecified; Z79.84 Long term (current) use of oral hypoglycemic drugs; Z91.14 Patient's other noncompliance with medication regimen; Z79.899 Other long term (current) drug therapy
CPT/HCPCS: 36415; 71045; 80053; 80320; 83880; 84484; 85025; 93005; 99285; Z7610; G0480

== ENCOUNTER 2024-06-19 18:16 | Emergency (ER) | payer BC, MEDICAID, OTHER ==
[~2024-06-19] VITALS: Ht 162.6 cm; Wt 71.0 kg
[2024-06-19 18:18] VITALS: BP 160/90; PULSE 78; RESP 18; TEMP 36.6; O2SAT 98
== END 2024-06-19 20:15 | disposition home or self-care (01) ==
LOC: ER 18:16
DX: R51.9 Headache, unspecified (principal); E11.649 Type 2 diabetes mellitus with hypoglycemia without coma; I10 Essential (primary) hypertension; E87.8 Other disorders of electrolyte and fluid balance, not elsewhere classified; Z79.899 Other long term (current) drug therapy; Z86.73 Personal history of transient ischemic attack (TIA), and cerebral infarction without residual deficits; Z90.49 Acquired absence of other specified parts of digestive tract
CPT/HCPCS: 70480; 99284